=== PATIENT | female | born 1965 | race Caucasian/White ===

== ENCOUNTER 2017-03-01 19:25 | Emergency (ER) | payer MEDICAID ==
[~2017-03-01] VITALS: Ht 162.6 cm; Wt 70.5 kg
[~2017-03-01 19:25] MED LIST: ACET1TAB40 PO; AMO500 PO; IBUP-1542 PO; TYL2 PO
[2017-03-01 19:29] VITALS: Ht 162.6 cm; Wt 70.5 kg
[2017-03-01] MEDS ORDERED: FAMOTIDINE 20 MG INJ IV STA (21:19)
[2017-03-01] MEDS ORDERED: SOD CHLORIDE 0.9% 1,000 ML IV STA (21:19)
--- NOTE | 2017-03-01 21:22 | ERD ---
ER Documentation Chief Complaint Date/Time DATE: 03/01/17 TIME: 21:20 Chief Complaint mid abd pain x 2 days HPI Patient is a 51-year-old female who presents with gradual onset, constant, dull , moderate epigastric pain for 2 days. She reports that yesterday in the afternoon she started vomiting for several episodes. It was nonbloody. Her abdominal pain started after her vomiting. She later developed diarrhea, which has persisted today. The diarrhea is yellow. Her vomiting has resolved. She denies fever, dysuria. She denies recent travel or eating undercooked foods. ROS All systems reviewed and are negative except as per history of present illness. Medications Home Meds Active Scripts Famotidine* (Famotidine*) 20 Mg Tablet, 20 MG PO BID for 7 Days, #14 TAB Prov:SRAVANI BARBOZA MD 03/01/17 Dicyclomine Hcl* (Bentyl*) 10 Mg Capsule, 10 MG PO QID Y for PAIN, #20 CAP Prov:SRAVANI BARBOZA MD 03/01/17 Discontinued Reported Medications [None] No Conflict Check 08/04/10 Discontinued Scripts Amoxicillin* (Amoxicillin*) 500 Mg Cap, 500 MG PO TID, #30 CAP Prov:MASSIMO GARCES MD 01/24/16 Acetaminophen-Codeine* (Acetaminophen-Cod #3*) 300-30 Mg Tab, 1 TAB PO Q4H Y for PAIN, #10 TAB Prov:MASSIMO GARCES MD 01/24/16 Acetaminophen-Codeine* (Acetaminophen-Cod #2*) 300-15 Mg Tab, 2 TAB PO Q4H Y for PAIN, #10 TAB Prov:TAMIKO MERA PA-C 07/20/15 Ibuprofen* (Motrin*) 600 Mg Tab, 600 MG PO Q6H Y for PAIN AND OR ELEVATED TEMP, #30 Prov:TAMIKO MERA PA-C 07/20/15 Allergies Allergies: Coded Allergies: No Known Allergy (Verified , 03/01/17) PMhx/Soc Past medical history: None Past surgical history: Social history: Denies tobacco, alcohol or illicit drugs. History of Surgery: No Anesthesia Reaction: No Hx Neurological Disorder: No Hx Respiratory Disorders: No Hx Cardiac Disorders: No Hx Psychiatric Problems: No Hx Miscellaneous Medical Probl: No Hx Alcohol Use: No Hx Substance Use: No Hx Tobacco Use: No Smoking Status: Never smoker FmHx Family History: No coronary disease, No diabetes Physical Exam Vitals Vital Signs Date Time Temp Pulse Resp B/P Pulse Ox O2 Delivery O2 Flow Rate FiO2 03/01/17 20:51 57 16 137/75 99 Room Air 03/01/17 19:29 98.4 59 20 115/57 100 Physical Exam Const: Alert, no acute distress Head: Atraumatic Eyes: Normal Conjunctiva, no pallor, no icterus ENT: Normal External Ears, Nose and Mouth. Neck: Full range of motion..~ No meningismus. Resp: Clear to auscultation bilaterally, no wheezes, no rales Cardio: Regular rate and rhythm, no murmurs Abd: Soft, nondistended. Mild epigastric tenderness, no guarding, no rebound Skin: No petechiae or rashes Back: No midline or flank tenderness Ext: No cyanosis, or edema Neur: Awake and alert, cranial nerves II through XII intact bilaterally, strength and sensation full in 4 extremities. Psych: Normal Mood and Affect Result Diagram: 03/01/17201903/01/172019 Results 24 hrs Laboratory Tests Test 03/01/17 20:20 White Blood Count 5.810^3/ul Red Blood Count 4.8810^6/ul Hemoglobin 14.9g/dl Hematocrit 45.6% Mean Corpuscular Volume 93.4fl Mean Corpuscular Hemoglobin 30.5pg Mean Corpuscular Hemoglobin Concent 32.7g/dl Red Cell Distribution Width 12.8% Platelet Count 11350^3/UL Mean Platelet Volume 12.3fl Neutrophils % 60.8% Lymphocytes % 30.2% Monocytes % 6.2% Eosinophils % 2.4% Basophils % 0.2% Nucleated Red Blood Cells % 0.0/100WBC Neutrophils # 3.510^3/ul Lymphocytes # 1.710^3/ul Monocytes # 0.410^3/ul Eosinophils # 0.110^3/ul Basophils # 0.010^3/ul Nucleated Red Blood Cells # 0.010^3/ul Sodium Level 145mmol/L Potassium Level 4.0mmol/L Chloride Level 102mmol/L Carbon Dioxide Level 27mmol/L Anion Gap 20 Blood Urea Nitrogen 7mg/dl Creatinine 0.68mg/dl Glucose Level 99mg/dl Calcium Level 9.9mg/dl Total Bilirubin 0.6mg/dl Direct Bilirubin 0.00mg/dl Indirect Bilirubin 0.6mg/dl Aspartate Amino Transf (AST/SGOT) 43IU/L Alanine Aminotransferase (ALT/SGPT) 58IU/L Alkaline Phosphatase 106IU/L Total Protein 8.8g/dl Albumin 4.6g/dl Globulin 4.20g/dl Albumin/Globulin Ratio 1.09 Lipase 40U/L Serum HCG, Qualitative NEGATIVE Current Medications Medications (Trade) Dose Ordered Sig/Magda Route PRN Reason Start Time Stop Time Status Last Admin Dose Admin Sodium Chloride (NS) 1,000 ml @ 1,000 mls/hr Q1H STAT IV 03/01/17 21:19 03/01/17 22:18 DC 03/01/17 21:27 Famotidine (Pepcid Iv) 20 mg ONCE STAT IV 03/01/17 21:19 03/01/17 21:21 DC 03/01/17 21:27 Dicyclomine HCl (Bentyl) 10 mg ONCE ONCE PO 03/01/17 21:30 03/01/17 21:31 DC 03/01/17 21:27 Procedures/MDM MDM: Patient is a 51-year-old female who presents with vomiting followed by abdominal pain and diarrhea. The abdominal pain is located in the epigastrium. The patient has no fever, no back pain. She has mild tenderness on exam, but her exam is relatively benign. Her labs are unremarkable. Is no evidence of electrolyte abnormality or dehydration. Currently, the patient has only diarrhea no vomiting. She states that her pain is somewhat improved with Pepcid and Bentyl. I suspect functional pain in the setting of gastroenteritis based on her history and exam. There are no features that are concerning for cholecystitis, pancreatitis, appendicitis, diverticulitis, or bowel obstruction. I will discharge the patient with prescriptions for Pepcid and Bentyl, and have advised patient to return to the ER for fever, worsening pain, migratory pain, or recurrence of vomiting. Departure Diagnosis: Primary Impression: Gastroenteritis Additional Impression: Abdominal pain Abdominal location: epigastric Qualified Code: R10.13 - Epigastric pain Condition: SRAVANI Jamison MD Mar 01, 2017 21:22
[2017-03-01 21:28] LABS: ADD SCAN DIFF NO
[2017-03-01 21:30] LABS: BASOPHILS % 0.2 % (0.0-2.0); EOSINOPHILS # 0.1 10^3/ul (0.0-0.5); EOSINOPHILS % 2.4 % (0.0-7.0); HEMATOCRIT 45.6 % (37.0-47.0); HEMOGLOBIN 14.9 g/dl (12.0-16.0); LYMPHOCYTES # 1.7 10^3/ul (0.8-2.9); LYMPHOCYTES % 30.2 % (15.0-51.0); MEAN CORPUSCULAR HEMOGLOBIN 30.5 pg (29.0-33.0); MEAN CORPUSCULAR HGB CONC 32.7 g/dl (32.0-37.0); MEAN CORPUSCULAR VOLUME 93.4 fl (82.0-101.0); MEAN PLATELET VOLUME 12.3 fl (7.4-10.4); MONOCYTE # 0.4 10^3/ul (0.3-0.9); MONOCYTES % 6.2 % (0.0-11.0); NEUTROPHIL # 3.5 10^3/ul (1.6-7.5); NEUTROPHILS % 60.8 % (39.0-77.0); PLATELET COUNT 195 10^3/UL (140-415); RED BLOOD COUNT 4.88 10^6/ul (4.20-5.40); RED CELL DISTRIBUTION WIDTH 12.8 % (11.5-14.5); WHITE BLOOD COUNT 5.8 10^3/ul (4.8-10.8)
[2017-03-01] MEDS ORDERED: DICYCLOMINE 10 MG CAP PO ONE (21:30)
[2017-03-01 21:36] LABS: ALBUMIN 4.6 g/dl (3.3-4.9); ALBUMIN/GLOBULIN RATIO 1.09; BILIRUBIN,INDIRECT 0.6 mg/dl (0-1.1); BILIRUBIN,TOTAL 0.6 mg/dl (0.2-1.3); CALCIUM 9.9 mg/dl (8.4-10.2); CREATININE 0.68 mg/dl (0.44-1.00); TOTAL PROTEIN 8.8 g/dl (6.1-8.1)
[2017-03-01] MEDS ORDERED: FAMO20TA18 PO (22:47)
[2017-03-01] MEDS ORDERED: DICY10CA60 PO (22:47)
[2017-03-01 23:35] VITALS: BP 107/80; PULSE 64; RESP 16; TEMP 98.1
== END 2017-03-01 23:44 | disposition home or self-care (01) ==
LOC: E/R 19:25
DX: K52.9 Noninfective gastroenteritis and colitis, unspecified (principal)
CPT/HCPCS: 36415; 80053; 83690; 84703; 85025; 96374; J7030; Z7502; Z7610

== ENCOUNTER 2018-01-31 23:11 | Emergency (ER) | END 2018-02-01 03:31 | disposition home or self-care (01) ==

== ENCOUNTER 2018-12-27 22:09 | Inpatient (IN) | payer MEDICAID ==
[~2018-12-27] VITALS: Ht 154.9 cm; Wt 63.6 kg
[~2018-12-27 22:09] MED LIST changes: -ACET1TAB40 PO; +ALBU8.5H8 INH; -AMO500 PO; +AZIT250T PO; +CETI10CA PO; +DICY10CA40 PO; +FAMO20TA18 PO; +GUAI473L22 PO; -TYL2 PO
[2018-12-27 22:17] VITALS: Ht 154.9 cm; Wt 63.6 kg
--- NOTE | 2018-12-27 22:23 | ERD ---
ER Documentation Chief Complaint Chief Complaint syncope, not responding when called HPI This is a 53-year-old female presents for evaluation of near syncope and chest pain. Patient was distraught, as her nephew had presented into the ED as a cardiac arrest, and unfortunately, he is now . Patient states that she has bilateral numbness to her hands and legs, she is tearful and very anxious, she has no prior history of heart disease or diabetes. ROS All systems reviewed and are negative except as per history of present illness. Medications Home Meds Active Scripts Cetirizine Hcl* (Zyrtec*) 10 Mg Capsule, 10 MG PO DAILY, #30 TAB.CHEW Prov:JUAN GOMEZ NP 02/01/18 Ibuprofen* (Motrin*) 600 Mg Tab, 600 MG PO Q6H PRN for PAIN AND OR ELEVATED TEMP, #30 TAB Prov:JUAN GOMEZ NP 02/01/18 Guaifenesin-Codeine Phosphate* (Guaifenesin* AC Cough Syrup) 473 Ml Liquid, 10 ML PO Q4H PRN for COUGH, #120 ML Prov:JUAN GOMEZ NP 02/01/18 Azithromycin* (Zithromax*) 250 Mg Tablet, 250 MG PO .WalkerPACK DIRECTED, #6 TAB TAKE 500 MG (2 TABS) THE FIRST DAY THEN 250 MG (1 TAB) DAYS 2-5 Prov:JUAN GOMEZ NP 02/01/18 Albuterol Sulfate* (Proair HFA*) 8.5 Gm Hfa.aer.ad, 2 PUFF INH Q4, #1 INHALER Prov:JUAN GOMEZ NP 02/01/18 Famotidine* (Famotidine*) 20 Mg Tablet, 20 MG PO BID for 7 Days, #14 TAB Prov:SRAVANI BARBOZA MD 03/01/17 Dicyclomine HCl (Dicyclomine HCl) 10 Mg Capsule, 10 MG PO QID PRN for PAIN, #20 CAP Prov:SRAVANI BARBOZA MD 03/01/17 Allergies Allergies: Coded Allergies: No Known Allergy (Verified , 03/01/17) PMhx/Soc History of Surgery: No Anesthesia Reaction: No Hx Neurological Disorder: No Hx Respiratory Disorders: No Hx Cardiac Disorders: No Hx Psychiatric Problems: No Hx Miscellaneous Medical Probl: No Hx Alcohol Use: No Hx Substance Use: No Hx Tobacco Use: No Physical Exam Vitals Vital Signs Date Temp Pulse Resp B/P (MAP) Pulse Ox O2 O2 Flow FiO2 Time Delivery Rate 12/27/18 99.1 86 22 131/83 100 22:17 (99) Physical Exam Const: Tearful, very anxious appearing Head: Atraumatic Eyes: Normal Conjunctiva ENT: Normal External Ears, Nose and Mouth. Neck: Full range of motion. No meningismus. Resp: Clear to auscultation bilaterally, no wheezes rales or rhonchi Cardio: Regular rate and rhythm, no murmurs Abd: Soft, non tender, non distended. Normal bowel sounds Skin: No petechiae or rashes Back: No midline or flank tenderness Ext: No cyanosis, or edema Neur: Awake and alert Psych: Appropriately distraught Result Diagram: 12/27/18 2227 12/28/18 0017 Results 24 hrs Laboratory Tests Test 12/27/18 22:27 12/27/18 22:28 12/28/18 00:17 White Blood Count 6.4 10^3/ul Red Blood Count 4.50 10^6/ul Hemoglobin 13.7 g/dl Hematocrit 41.5 % Mean Corpuscular Volume 92.2 fl Mean Corpuscular Hemoglobin 30.4 pg Mean Corpuscular 33.0 g/dl Hemoglobin Concent Red Cell Distribution Width 12.7 % Platelet Count 209 10^3/UL Mean Platelet Volume 11.5 fl Immature Granulocytes % 0.200 % Neutrophils % 52.1 % Lymphocytes % 36.4 % Monocytes % 8.8 % Eosinophils % 2.0 % Basophils % 0.5 % Nucleated Red Blood Cells % 0.0 /100WBC Immature Granulocytes # 0.010 10^3/ul Neutrophils # 3.3 10^3/ul Lymphocytes # 2.3 10^3/ul Monocytes # 0.6 10^3/ul Eosinophils # 0.1 10^3/ul Basophils # 0.0 10^3/ul Nucleated Red Blood Cells # 0.0 10^3/ul Sodium Level 140 mmol/L 141 mmol/L Potassium Level 3.9 mmol/L 4.4 mmol/L Chloride Level 107 mmol/L 110 mmol/L Carbon Dioxide Level 25 mmol/L 23 mmol/L Anion Gap 8 8 Blood Urea Nitrogen 21 mg/dl 19 mg/dl Creatinine 0.62 mg/dl 0.54 mg/dl Est Glomerular Filtrat Rate mL/min > 60 mL/min > 60 mL/min Glucose Level 148 mg/dl 144 mg/dl Calcium Level 9.7 mg/dl 9.2 mg/dl Troponin I 0.237 ng/ml 1.480 ng/ml Bedside Glucose 147 mg/dL Prothrombin Time 12.8 Sec Prothrombin Time Ratio 1.0 INR International Normalized Ratio 0.95 Activated Partial Thromboplast 28.6 Sec Time Total Bilirubin 0.4 mg/dl Direct Bilirubin 0.00 mg/dl Indirect Bilirubin 0.4 mg/dl Aspartate Amino Transf (AST/SGOT) 49 IU/L Alanine 32 IU/L Aminotransferase (ALT/SGPT) Alkaline Phosphatase 107 IU/L B-Type Natriuretic Peptide 91 PG/ML Total Protein 7.5 g/dl Albumin 4.2 g/dl Globulin 3.30 g/dl Albumin/Globulin Ratio 1.27 Triglycerides Level 252 mg/dl Cholesterol Level 250 mg/dl LDL Cholesterol, Calculated 154 mg/dl HDL Cholesterol 46 mg/dl Cholesterol/HDL Ratio 5.4 RATIO Lipase 77 U/L Current Medications Medications Dose Sig/Magda Start Time Status Last (Trade) Ordered Route PRN Stop Time Admin Dose Reason Admin Lorazepam 1 mg ONCE ONCE 12/27/18 DC 12/27/18 (Ativan) IV 22:30 22:39 12/27/18 22:31 Sodium 1,000 ml @ Q1H ONCE 12/27/18 DC 12/27/18 Chloride 1,000 mls/hr IV 22:30 22:39 12/27/18 23:29 Aspirin 162 mg ONCE ONCE 12/27/18 DC 12/27/18 (Aspirin) PO 23:30 23:58 12/27/18 23:31 Aspirin 325 mg ONCE ONCE 12/28/18 DC 12/28/18 (Aspirin) PO 00:07 00:07 12/28/18 00:08 Heparin 3,600 unit ONCE ONCE 12/28/18 DC 12/28/18 Sodium IV 00:07 00:25 (Porcine) 12/28/18 00:08 (Heparin (1000 Units/ml)) Heparin 250 ml @ ONCE IV 12/28/18 DC 12/28/18 Sodium 7.5 mls/hr 00:01 00:27 (Porcine) 12/28/18 01:31 Sodium 1,000 ml @ [id number] IV 12/28/18 Chloride 60 mls/hr 01:21 IV Flush 3 ml PER 12/28/18 (NS 3 ml) PROTOCOL IV 01:30 Lorazepam 0.5 mg Q6H PRN 12/28/18 (Ativan) IV .ANXIETY 01:30 Ondansetron 4 mg Q6H PRN 12/28/18 HCl (Zofran IV 01:30 Inj) NAUSEA/VOMITI NG Aspirin 81 mg DAILY PO 12/28/18 (Aspirin) 09:00 1 tab Q5M PRN 12/28/18 Nitroglycerin SL .CHEST 01:30 PAIN (Nitroglyceri n (Sl Tab) 0.4 Mg) 650 mg Q6H PRN 12/28/18 Acetaminophen PO .PAIN 1-3 01:30 (Tylenol OR TEMP Tab) Morphine 2 mg Q4H PRN 12/28/18 Sulfate IV .PAIN 01:30 (morphine) 7-10 Docusate 100 mg Q12H PRN 12/28/18 Sodium PO 01:30 (Colace) .CONSTIPATION Bisacodyl 5 mg DAILY PRN 12/28/18 (Dulcolax) PO 01:30 .CONSTIPATION DC ONCE ONCE 12/28/18 DC Miscellaneous previous XX 01:30 hepa... 12/28/18 01:31 Information (* Miscellaneous Pharmacy Order) Heparin 3,800 unit ONCE ONCE 12/28/18 DC Sodium IV 01:30 (Porcine) 12/28/18 01:30 (Heparin (1000 Units/ml)) Heparin 3,800 unit PER PROTOCOL 12/28/18 Sodium PRN IV 01:30 (Porcine) aPTT<47 (Heparin (1000 Units/ml)) Heparin 250 ml @ PER 12/28/18 Sodium 7.5 mls/hr PROTOCOL IV 01:30 (Porcine) Lisinopril 5 mg ONCE ONCE 12/28/18 DC (Zestril) PO 01:30 12/28/18 01:31 80 mg ONCE ONCE 12/28/18 DC Atorvastatin PO 01:30 Calcium 12/28/18 01:31 (Lipitor) 80 mg HS PO 12/28/18 Atorvastatin 21:00 Calcium (Lipitor) Procedures/MDM This is a 53-year-old female who presents for evaluation of chest pain and near syncope, this was in the setting of a very traumatic event, her nephew, just in the ED, her chest pain had improved by the time she arrived, her labs showed an elevated troponin, her EKG did not show any signs of ischemia, I considered possibly of Takatsubo cardiomyopathy, however another cause of an STEMI cannot be ruled out, that she will require admission. She was given aspirin and started on heparin. Accepting Care Team: Current data and ongoing care discussed. Primary: Neftaly Consulting: none Outstanding Data: none Critical Care Time: 35 minutes Treatments/Evaluations: Close monitoring and treatment of unstable vital signs, cardiorespiratory, and neurologic status, while maintaining tight balance of fluid, respiratory, and cardiac interventions. This time includes discussing the case with the patient and the patient's family. This time does not include all procedures stated elsewhere in this record. This time also includes reviewing o ld records, labs and radiological studies. This time includes examining and re- examining the patient. Additionally, this time also includes arranging care with admitting and consulting physicians. Departure Diagnosis: Primary Impression: Chest pain Chest pain type: unspecified Qualified Codes: R07.9 - Chest pain, unspecified Additional Impression: Non-STEMI (non-ST elevated myocardial infarction) Condition: Stable MARK TREVIZO MD December 27, 2018 22:22
[2018-12-27] MEDS ORDERED: LORAZEPAM 2 MG INJ IV ONE (22:30)
[2018-12-27] MEDS ORDERED: SOD CHLORIDE 0.9% 1,000 ML IV ONE (22:30)
[2018-12-27] MEDS ORDERED: ASPIRIN 81 MG TAB PO ONE (23:30)
[2018-12-28] VITALS (37 sets, daily range): BP systolic 76–109; BP diastolic 48–66; PULSE 52–74; RESP 11–22
[2018-12-28] MEDS ORDERED: HEPARIN 25000 UNITS/250 ML 250 ML IV SCH ×2 (00:01→01:30)
[2018-12-28] MEDS ORDERED: ASPIRIN 325 MG TAB PO ONE (00:07)
[2018-12-28] MEDS ORDERED: HEPARIN 1000 UNITS/ML 10 ML INJ IV ONE ×2 (00:07→01:30)
[2018-12-28] MEDS: SOD CHLORIDE 0.9% 1,000 ML IV SCH (01:21)
--- NOTE | 2018-12-28 01:26 | HP ---
Date/Time of Note Date/Time of Note DATE: 12/28/18 TIME: 01:26 Assessment/Plan VTE Prophylaxis SCD applied (from Nsg): Yes Pharmacological prophylaxis: NA/contraindicated Pharm contraindication: low risk/ambulating Assessment/Plan Hospital Course This is a 53-year-old female being admitted to the telemetry floor for: #1Nstemi: Type I versus type II. Differential also includes takostubo cardiomyopathy initial troponin was 0.2 with a repeat increasing to 1.2. Patient was initiated on heparin drip in the emergency department will continue this at the current time, she was also given high-dose aspirin.. We will start the patient on a low-dose KIRSTIN inhibitor, high-dose statin. We will check hemoglobin A 1C, lipid panel, TSH. We will keep the patient n.p.o. at the current time, gentle IV fluid hydration. We will check an echocardiogram., Aspirin 81 mg daily will consult cardiology . PRN nitro/morphine. defer beta-buzz until seen by cardio. #2 syncope vs. near syncope: secondary to #1 vs emotional stress response/vasogal. Back to baseline now. Monitor on tele for arrhythmias. Cardio consulted. #3 hypertension: Monitor patient's blood pressure, start low dose patient on lisinopril, will need to confirm her home medication #4 hyperlipidemia: Check lipid panel, initiate high-dose statin #5 Grief: Supportive care, PRN Ativan #6 DVT GI prophylaxis: Heparin, no GI prophylaxis indicated Further treatment strategy will be implemented as per the clinical course Result Diagram: 12/27/18 2227 12/28/18 0017 Results 24hrs Laboratory Tests Test 12/27/18 22:27 12/27/18 22:28 12/28/18 00:17 White Blood Count 6.4 Red Blood Count 4.50 Hemoglobin 13.7 Hematocrit 41.5 Mean Corpuscular Volume 92.2 Mean Corpuscular Hemoglobin 30.4 Mean Corpuscular Hemoglobin Concent 33.0 Red Cell Distribution Width 12.7 Platelet Count 209 Mean Platelet Volume 11.5 H Immature Granulocytes % 0.200 Neutrophils % 52.1 Lymphocytes % 36.4 Monocytes % 8.8 Eosinophils % 2.0 Basophils % 0.5 Nucleated Red Blood Cells % 0.0 Immature Granulocytes # 0.010 Neutrophils # 3.3 Lymphocytes # 2.3 Monocytes # 0.6 Eosinophils # 0.1 Basophils # 0.0 Nucleated Red Blood Cells # 0.0 Sodium Level 140 141 Potassium Level 3.9 4.4 Chloride Level 107 110 Carbon Dioxide Level 25 23 Anion Gap 8 8 Blood Urea Nitrogen 21 H 19 Creatinine 0.62 0.54 Est Glomerular Filtrat Rate mL/min > 60 > 60 Glucose Level 148 144 Calcium Level 9.7 9.2 Troponin I 0.237 *H 1.480 *H Bedside Glucose 147 Prothrombin Time 12.8 Prothrombin Time Ratio 1.0 INR International Normalized Ratio 0.95 Activated Partial Thromboplast Time 28.6 Total Bilirubin 0.4 Direct Bilirubin 0.00 Indirect Bilirubin 0.4 Aspartate Amino Transf (AST/SGOT) 49 H Alanine Aminotransferase (ALT/SGPT) 32 Alkaline Phosphatase 107 B-Type Natriuretic Peptide 91 Total Protein 7.5 Albumin 4.2 Globulin 3.30 H Albumin/Globulin Ratio 1.27 Triglycerides Level 252 H Cholesterol Level 250 H LDL Cholesterol, Calculated 154 HDL Cholesterol 46 Cholesterol/HDL Ratio 5.4 Lipase 77 HPI/ROS Admit Date/Time Admit Date/Time Hx of Present Illness Chief complaint: Chest pain followed by syncope This is a 53-year-old female who presented to the emergency department for evaluation of chest pain and syncope. Patient unfortunately found out the news of her relatives who was only 16 years old and suffered a cardiac arrest at [facility]. After finding out the news patient became overcome with emotion and reported chest pain followed by fainting. Patient was caught by relatives and did not hit the ground. Patient was approximately nonresponsive for a period of a few minutes. She was brought in via wheelchair to the emergency department. It took her some time to awaken. Patient reports that when she awoke she continued to have chest pain. She also reported having numbness in her bilateral hands and legs and she was tearful and very stressed in the emergency department. She was accompanied by her daughter who did report that in the past she had been complaining of chest pain over the last few months. Allergies: NKDA Medications: See MATHIEU VACA Const: As per HPI Eyes : No pain discharge or redness or change in visual acuity ENT: No pain, sore throat, congestion, congestion, dysphagia or discharge Respiratory: No shortness of breath, cough, sputum, wheezing, or pleuritic pain Cardiovascular: As per HPI GI : no change in appetite, abdominal pain, nausea, vomiting, diarrhea, constipation, or change in the color his stool Genitourinary: No dysuria, hematuria, flank pain , discharge or CVA tenderness Musculoskeletal: No joint pain, back pain, neck pain, restricted range of motion in neck or joints Skin: No rash, bruising or hives Neuro: No headache, dizziness, syncope, seizure, focal weakness Endocrine: No polyuria, polydipsia, temperature intolerance Psych: As per HPI PMH/Family/Social Past Medical History Hypertension, hyperlipidemia Medications Current Medications Heparin Sodium (Porcine) 250 ml @ 7.5 mls/hr ONCE IV Last administered on 12/28/18at 00:27; Admin Dose 7.5 MLS/HR; Start 12/28/18 at 00:01; Stop 12/29/18 at 00:00 Coded Allergies: No Known Allergy (Unverified , 12/28/18) Past Surgical History x1 Family History Significant Family History: no pertinent family hx Social History Alcohol Use: none Smoking Status: Never smoker Drug Use: none Exam/Review of Systems Vital Signs Vitals Vital Signs Date Temp Pulse Resp B/P (MAP) Pulse Ox O2 O2 Flow FiO2 Time Delivery Rate 12/27/18 99.1 86 22 131/83 100 22:17 (99) Exam Exam General: Patient is currently lying in bed she does appear sad, but in no acute distress HEENT: Atraumatic, normocephalic. The pupils are equal, round and reactive. Extraocular motor are intact Neck: Supple with full range of motion. No rigidity or meningismus Chest: Tender to palpation across anterior chest wall Lungs: Clear to auscultation bilaterally no crackles rales or wheezing Heart: Normal S1-S2, Regular rhythm and rate. No overt murmurs appreciated on auscultation Abdomen: Soft , nontender, nondistended , bowel sounds are present. No guarding no rebound tenderness , No masses or organomegaly. No costovertebral temporal angle mass Extremities: Normal to inspection, no edema no cyanosis Neurologic: Normal mental status, speech normal, cranial nerves II through XII are intact, motor and sensory are intact, Psych: Patient does appear to be sad, slightly anxious Additional Comments EKG: Normal sinus rhythm, no signs of acute ischemia PROCEDURE: CHEST - 1 VIEW CLINICAL INDICATION: 53-year-old female with chest pain. TECHNIQUE: A single frontal AP portable view of the chest was performed. The images were reviewed on a PACS workstation. COMPARISON: None. FINDINGS: The cardiomediastinal silhouette is prominent but within normal limits. There is no evidence for an infiltrate. There is no evidence for congestive heart failure. There is no evidence for pneumothorax. The osseous structures are intact. IMPRESSION: No evidence for active cardiopulmonary disease. .Ace Mcdermott MD, MD Date Time Electronically viewed and signed by .Ace Mcdermott MD, MD on 12/28/2018 03:39 .M/ CC: MARK TREVIZO MD [id number] JAYANT CALDWELL December 28, 2018 01:26
[2018-12-28] MEDS ORDERED: ATORVASTATIN 80 MG TAB PO ONE (01:30)
[2018-12-28] MEDS ORDERED: NACL 0.9% 3 ML SYG IV SCH (01:30)
[2018-12-28] MEDS ORDERED: LISINOPRIL 5 MG TAB PO ONE (01:30)
[2018-12-28] MEDS ORDERED: LORAZEPAM 2 MG INJ IV PRN (01:30)
[2018-12-28] MEDS ORDERED: DOCUSATE SODIUM 100 MG CAP PO PRN (01:30)
[2018-12-28] MEDS ORDERED: HEPARIN 1000 UNITS/ML 10 ML INJ IV PRN (01:30)
[2018-12-28] MEDS ORDERED: BISACODYL (EC) 5 MG TAB PO PRN (01:30)
[2018-12-28] MEDS ORDERED: NITROGLYCERIN (SL) 0.4 MG TAB SL PRN (01:30)
[2018-12-28] MEDS: ACETAMINOPHEN 325 MG TAB PO PRN (04:38)
--- NOTE | 2018-12-28 08:53 | RADRPT ---
Echocardiogram Report Patient Name: MIKAELA MESAPatient ID: [id number] : 1965 (53y 6m)Study Date: 12/28/2018 7:19:28 AM Gender: FAccession #: [id number] Tech: Marianna Morrissey RDCS Location: 519 Ref.Physician: JAYANT CALDWELL Height(Cm): BSA: Weight(Kg): Quality: AdequateOrder Physician: JAYANT CALDWELL Account #: Procedures: Echocardiographic Report: Transthoracic echocardiogram with complete 2D, M-Mode, and doppler examination. Indications: NSTEMI. Measurements: 2D/M Mode Doppler Measurement Value Normal Range Measurement Value Normal Range LVIDd 2D 4.6 [ 3.8 - 5.2 ] cm AV Peak Jose Juan 1.2 [ 100.0 - 170.0 ] cm/sec LVIDs 2D 3.1 [ 2.2 - 3.5 ] cm AV Peak PG 6.0 [ 2.0 - 9.0 ] mmHg LVPWd 2D 0.9 [ 0.6 - 0.9 ] cm LVOT Peak Jose Juan 0.9 [ 70.0 - 110.0 ] cm/sec IVSd 2D 0.9 [ 0.6 - 0.9 ] cm LVOT Peak PG 3.0 [ 2.0 - 6.0 ] mmHg AoR Diam 2D 2.3 [ 2.3 - 3.1 ] cm MV E Peak Jose Juan 0.9 [ 60.0 - 130.0 ] cm/sec EDV 2D 94.9 [ 46.0 - 106.0 ] ml MV A Peak Jose Juan 0.6 [ 100.0 - 120.0 ] cm/sec ESV 2D 37.0 [ 14.0 - 42.0 ] ml MV E/A 1.5 [ 0.8 - 1.5 ] ratio EF 2D 61.0 [ 54.0 - 74.0 ] percent MV Decel Time 183 [ 104 - 258 ] msec LA Dimen 2D 3.2 [ 2.7 - 3.8 ] cm Lat E` Jose Juan 0.1 [ 10.0 - 15.0 ] cm/sec Lateral E/E` 13.0 [ 1.0 - 2.0 ] ratio MV E/A 1.5 [ 0.8 - 1.5 ] ratio TR Peak Jose Juan 2.6 [ 100.0 - 280.0 ] cm/sec TR Peak PG 27.0 mmHg RVSP 30.0 [ 10.0 - 36.0 ] mmHg RA Pressure 3.0 mmHg Findings: Left Ventricle: Normal left ventricular cavity size. Normal left ventricular wall thickness. Mild left ventricular systolic dysfunction. Ejection fraction is visually estimated at 40-45 %. Akinesis/dyskinesis of the mid anterior and anterolateral reyes. These segments of the LV are hypokinetic mid anterior segment, anterolateral mid segment and anteroseptum mid segment. Right Ventricle: Normal right ventricular size. Normal right ventricular systolic function. Left Atrium: The left atrium is normal in size. Right Atrium: The right atrium is normal in size. Mitral Valve: Normal appearance of the mitral valve. Normal appearance and function of the mitral valve with trace physiologic regurgitation. Aortic Valve: Normal appearance of the aortic valve. No significant aortic stenosis or insufficiency. Tricuspid Valve: Normal appearance of the tricuspid valve. Estimated peak PA systolic pressure 30 mmHg. There is trace tricuspid regurgitation. Pulmonic Valve: Normal pulmonic valve appearance. Pericardium: Normal pericardium with no significant pericardial effusion. Aorta: Normal aortic root. IVC: Normal size and normal respiratory collapse consistent with normal right atrial pressure. Conclusions: Normal left ventricular cavity size. Normal left ventricular wall thickness. Mild left ventricular systolic dysfunction. Ejection fraction is visually estimated at 40-45 %. Akinesis/dyskinesis of the mid anterior and anterolateral reyes. These segments of the LV are hypokinetic mid anterior segment, anterolateral mid segment and anteroseptum mid segment. No significant valvular stenosis or regurgitation seen. Estimated peak PA systolic pressure 30 mmHg. Normal size and normal respiratory collapse consistent with normal right atrial pressure. Electronically Signed By: Kun Agudelo 2018-12-28 08:52:26 PDT
[2018-12-28] MEDS: ASPIRIN 81 MG TAB PO SCH (09:13)
--- NOTE | 2018-12-28 09:21 | CONS ---
Assessment/Plan Assessment/Plan Hospital Course (Demo Recall) NSTEMI: EKG normal, trops so far 2.6. Based on surrounding circumstances, Takotsubo is still highest on differential. SCAD also possible. Echo does not show the classic apical aneurysm but instead a mid anterior/anterolateral one so could be true CAD or Takotsubo variant. Regardless, this is a diagnosis that is made after CAD has been ruled out. She is agreeable to cardiac cath. Syncope: near syncope or full syncope. Still likely from the overwhelming emotional stress triggering vasovagal response but cannot rule out arrhythmia in the setting of above Cardiomyopathy: EF 40-45% with mid anterior/anterolateral akinesis. Possibly Takotsubo if CAD ruled out HL: LDL 150 -NPO -cardiac cath today at 2pm -continue heparin drip -ASA, lipitor -BP will not tolerate BB for now but will need to start metoprolol succ or coreg once it improves Consultation Date/Type/Reason Admit Date/Time Date of Consultation: December 28, 2018 Type of Consult Cardiology Reason for Consultation NSTEMI Requesting Provider: JAYANT CALDWELL Date/Time of Note DATE: 12/28/18 TIME: 09:09 Hx of Present Illness 53 yo F with no prior medical history who had syncope and chest pain while in [facility] ER after hearing about the passing of her 16 year old nephew in our ER. An lion tamer was used for Filipino. She notes that she started to have chest pain and dyspnea and then almost passed out. She does not think she fully lost consciousness and her family caught her. Her EKG was unremarkable and her trops have been up to 2.6 this am. No further chest pain or SOB. She notes that she sometimes has chest pain when she is stressed but never with exertion. per hpi Past Medical History per HPI Home Meds Active Scripts Ibuprofen* (Motrin*) 600 Mg Tab, 600 MG PO Q6H PRN for PAIN AND OR ELEVATED TEMP, #30 TAB Prov:JUAN GOMEZ NP 02/01/18 Discontinued Scripts Cetirizine Hcl* (Zyrtec*) 10 Mg Capsule, 10 MG PO DAILY, #30 TAB.CHEW Prov:JUAN GOMEZ NP 02/01/18 Guaifenesin-Codeine Phosphate* (Guaifenesin* AC Cough Syrup) 473 Ml Liquid, 10 ML PO Q4H PRN for COUGH, #120 ML Prov:JUAN GOMEZ NP 02/01/18 Azithromycin* (Zithromax*) 250 Mg Tablet, 250 MG PO .ZPACK DIRECTED, #6 TAB TAKE 500 MG (2 TABS) THE FIRST DAY THEN 250 MG (1 TAB) DAYS 2-5 Prov:JUAN GOMEZ NP 02/01/18 Albuterol Sulfate* (Proair HFA*) 8.5 Gm Hfa.aer.ad, 2 PUFF INH Q4, #1 INHALER Prov:JUAN GOMEZ NP 02/01/18 Famotidine* (Famotidine*) 20 Mg Tablet, 20 MG PO BID for 7 Days, #14 TAB Prov:SRAVANI BARBOZA MD 03/01/17 Dicyclomine HCl (Dicyclomine HCl) 10 Mg Capsule, 10 MG PO QID PRN for PAIN, #20 CAP Prov:SRAVANI BARBOZA MD 03/01/17 Medications Current Medications Sodium Chloride 1,000 ml @ 60 mls/hr [id number] IV Last administered on 12/28/18at 01:21; Admin Dose 60 MLS/HR; Start 12/28/18 at 01:21 IV Flush (NS 3 ml) 3 ml PER PROTOCOL IV ; Start 12/28/18 at 01:30 Lorazepam (Ativan) 0.5 mg Q6H PRN IV .ANXIETY; Start 12/28/18 at 01:30 Ondansetron HCl (Zofran Inj) 4 mg Q6H PRN IV NAUSEA/VOMITING; Start 12/28/18 at 01:30 Aspirin (Aspirin) 81 mg DAILY PO ; Start 12/28/18 at 09:00 Nitroglycerin (Nitroglycerin (Sl Tab) 0.4 Mg) 1 tab Q5M PRN SL .CHEST PAIN; St art 12/28/18 at 01:30 Acetaminophen (Tylenol Tab) 650 mg Q6H PRN PO .PAIN 1-3 OR TEMP Last administe red on 12/28/18at 04:38; Admin Dose 650 MG; Start 12/28/18 at 01:30 Morphine Sulfate (morphine) 2 mg Q4H PRN IV .PAIN 7-10; Start 12/28/18 at 01:30 Docusate Sodium (Colace) 100 mg Q12H PRN PO .CONSTIPATION; Start 12/28/18 at 01:30 Bisacodyl (Dulcolax) 5 mg DAILY PRN PO .CONSTIPATION; Start 12/28/18 at 01:30 Heparin Sodium (Porcine) (Heparin (1000 Units/ml)) 3,800 unit PER PROTOCOL PRN IV aPTT<47; Start 12/28/18 at 01:30 Heparin Sodium (Porcine) 250 ml @ 7.5 mls/hr PER PROTOCOL IV ; Start 12/28/18 at 01:30 Atorvastatin Calcium (Lipitor) 80 mg HS PO ; Start 12/28/18 at 21:00 Allergies: Coded Allergies: No Known Allergy (Unverified , 12/28/18) Social History Alcohol Use: none Smoking Status: Never smoker Drug Use: none Exam/Review of Systems Vital Signs Vitals Vital Signs Date Temp Pulse Resp B/P (MAP) Pulse Ox O2 O2 Flow FiO2 Time Delivery Rate 12/28/18 58 08:11 12/28/18 98.1 19 94/54 (67) 97 07:44 12/28/18 Room Air 04:20 Exam Constitutional: alert, oriented Psych: no complaints, nl mood/affect Head: normocephalic, atraumatic Neck: supple; No jvd Respiratory: clear to auscultation; No crackles/rales Cardiovascular: regular rate and rhythm; No edema, No systolic murmur Gastrointestinal: soft, non-tender Neurological: nl mental status, nl speech Additional Comments EKG: sinus, no ST changes Labs Result Diagram: 12/28/18 0634 12/28/18 0634 Results 24hrs Laboratory Tests Test 12/27/18 22:27 12/27/18 22:28 12/28/18 00:10 12/28/18 00:17 White Blood Count 6.4 7.8 # Red Blood Count 4.50 4.66 Hemoglobin 13.7 14.2 Hematocrit 41.5 43.9 Mean Corpuscular 92.2 94.2 Volume Mean Corpuscular 30.4 30.5 Hemoglobin Mean Corpuscular 33.0 32.3 Hemoglobin Concent Red Cell 12.7 12.7 Distribution Width Platelet Count 209 203 Mean Platelet Volume 11.5 H 12.6 H Immature 0.200 0.300 Granulocytes % Neutrophils % 52.1 71.8 Lymphocytes % 36.4 21.2 Monocytes % 8.8 5.4 Eosinophils % 2.0 1.0 Basophils % 0.5 0.3 Nucleated Red Blood 0.0 0.0 Cells % Immature 0.010 0.020 Granulocytes # Neutrophils # 3.3 5.6 Lymphocytes # 2.3 1.7 Monocytes # 0.6 0.4 Eosinophils # 0.1 0.1 Basophils # 0.0 0.0 Nucleated Red Blood 0.0 0.0 Cells # Sodium Level 140 141 Potassium Level 3.9 4.4 Chloride Level 107 110 Carbon Dioxide Level 25 23 Anion Gap 8 8 Blood Urea Nitrogen 21 H 19 Creatinine 0.62 0.54 Est Glomerular > 60 > 60 Filtrat Rate mL/min Glucose Level 148 144 Calcium Level 9.7 9.2 Troponin I 0.237 *H 1.480 *H Bedside Glucose 147 Prothrombin Time 12.8 Prothrombin Time 1.0 Ratio INR International 0.95 Normalized Ratio Activated 28.6 Partial Thromboplast Time Total Bilirubin 0.4 Direct Bilirubin 0.00 Indirect Bilirubin 0.4 Aspartate Amino 49 H Transf (AST/SGOT) Alanine 32 Aminotransferase (AL T/SGPT) Alkaline Phosphatase 107 B-Type Natriuretic 91 Peptide Total Protein 7.5 Albumin 4.2 Globulin 3.30 H Albumin/Globulin 1.27 Ratio Triglycerides Level 252 H Cholesterol Level 250 H LDL Cholesterol, 154 Calculated HDL Cholesterol 46 Cholesterol/HDL 5.4 Ratio Lipase 77 Test 12/28/18 06:34 White Blood Count 7.3 Red Blood Count 4.24 Hemoglobin 12.8 Hematocrit 39.7 Mean Corpuscular 93.6 Volume Mean Corpuscular 30.2 Hemoglobin Mean Corpuscular 32.2 Hemoglobin Concent Red Cell 12.9 Distribution Width Platelet Count 178 Mean Platelet Volume 12.1 H Immature 0.100 Granulocytes % Neutrophils % 61.7 Lymphocytes % 29.2 Monocytes % 7.7 Eosinophils % 1.0 Basophils % 0.3 Nucleated Red Blood 0.0 Cells % Immature 0.010 Granulocytes # Neutrophils # 4.5 Lymphocytes # 2.1 Monocytes # 0.6 Eosinophils # 0.1 Basophils # 0.0 Nucleated Red Blood 0.0 Cells # Activated 49.5 H Partial Thromboplast Time Sodium Level 142 Potassium Level 4.2 Chloride Level 112 H Carbon Dioxide Level 24 Anion Gap 6 Blood Urea Nitrogen 12 Creatinine 0.48 Est Glomerular > 60 Filtrat Rate mL/min Glucose Level 98 # Hemoglobin A1c 5.5 Calcium Level 9.2 Magnesium Level 2.2 Total Bilirubin 0.7 Direct Bilirubin 0.00 Indirect Bilirubin 0.7 Aspartate Amino 95 H Transf (AST/SGOT) Alanine 63 Aminotransferase (AL T/SGPT) Alkaline Phosphatase 109 Creatine Kinase 121 Creatine Kinase 7.3 Index Creatinine Kinase MB 8.85 H (Mass) Troponin I 2.630 *H Total Protein 6.8 Albumin 3.7 Globulin 3.10 Albumin/Globulin 1.19 Ratio Triglycerides Level 172 H Cholesterol Level 220 H LDL Cholesterol, 137 Calculated HDL Cholesterol 49 Cholesterol/HDL 4.4 Ratio Thyroid Stimulating Pending Hormone (TSH) Medications Medications Current Medications Sodium Chloride 1,000 ml @ 60 mls/hr [id number] IV Last administered on 12/28/18at 01:21; Admin Dose 60 MLS/HR; Start 12/28/18 at 01:21 IV Flush (NS 3 ml) 3 ml PER PROTOCOL IV ; Start 12/28/18 at 01:30 Lorazepam (Ativan) 0.5 mg Q6H PRN IV .ANXIETY; Start 12/28/18 at 01:30 Ondansetron HCl (Zofran Inj) 4 mg Q6H PRN IV NAUSEA/VOMITING; Start 12/28/18 at 01:30 Aspirin (Aspirin) 81 mg DAILY PO ; Start 12/28/18 at 09:00 Nitroglycerin (Nitroglycerin (Sl Tab) 0.4 Mg) 1 tab Q5M PRN SL .CHEST PAIN; Start 12/28/18 at 01:30 Acetaminophen (Tylenol Tab) 650 mg Q6H PRN PO .PAIN 1-3 OR TEMP Last administered on 12/28/18at 04:38; Admin Dose 650 MG; Start 12/28/18 at 01:30 Morphine Sulfate (morphine) 2 mg Q4H PRN IV .PAIN 7-10; Start 12/28/18 at 01:30 Docusate Sodium (Colace) 100 mg Q12H PRN PO .CONSTIPATION; Start 12/28/18 at 01:30 Bisacodyl (Dulcolax) 5 mg DAILY PRN PO .CONSTIPATION; Start 12/28/18 at 01:30 Heparin Sodium (Porcine) (Heparin (1000 Units/ml)) 3,800 unit PER PROTOCOL PRN IV aPTT<47; Start 12/28/18 at 01:30 Heparin Sodium (Porcine) 250 ml @ 7.5 mls/hr PER PROTOCOL IV ; Start 12/28/18 at 01:30 Atorvastatin Calcium (Lipitor) 80 mg HS PO ; Start 12/28/18 at 21:00 MAGUI ACOSTA December 28, 2018 09:20
--- NOTE | 2018-12-28 10:22 | QN ---
Documentation Comment 53 yo F w/no pmh admitted with chest pain/syncope after hearing sudden une xpected of her 16-year-old nephew.. found to have elevated troponin. Cardiology following and plan is [facility] today. cont. aspirin/high intensity statin. Echo with cardiomyopathy with ejection fraction 40 to 45%. Continue KIRSTIN inhibitors and consider statin beta-blockers if tolerated by blood pressure. Patient was seen in collaboration with Dr. Ahuja. IRA REESE NP December 28, 2018 10:22
[2018-12-28] MEDS ORDERED: HEPARIN 1000 UNITS/ML 10 ML INJ ONE (13:48)
[2018-12-28] MEDS ORDERED: MIDAZOLAM 1 MG/ML 2 ML INJ ONE (13:48)
[2018-12-28] MEDS ORDERED: IODIXANOL LOCM 100 ML BTL ONE (13:48)
[2018-12-28] MEDS ORDERED: LIDOCAINE 1% (MDV) 20 ML INJ ONE (13:48)
[2018-12-28] MEDS ORDERED: VERAPAMIL 5 MG INJ ONE (13:49)
[2018-12-28] MEDS ORDERED: FENTAnyl 50 MCG/ML VIAL ONE (13:49)
[2018-12-28] MEDS ORDERED: NITROGLYCERIN (IC) 100 MCG/ML INJ ONE (13:49)
--- NOTE | 2018-12-28 14:24 | RADRPT ---
Vent Rate: 79 bpm RR Interval: 0 msec ID Interval: 162 msec QRS Duration: 80 msec QT Interval: 382 msec QTC Interval: 438 msec P-R-T [place]: 75 - 65 - 36 degrees Normal sinus rhythm Normal ECG Electronically Signed By: [facility]
--- NOTE | 2018-12-28 15:16 | OPR ---
Date/Time of Note Date/Time of Note DATE: 12/28/18 TIME: 15:09 Operative Report Procedure Date: December 28, 2018 Preoperative Diagnosis NSTEMI Postoperative Diagnosis Takotsubo cardiomyopathy Operation/Procedure Performed see details Surgeon see signature line Global Account Director none Anesthesia Type: moderate sedation Estimated Blood Loss: minimal Transfusion none Specimen none Grafts/Implants none Complications none Procedure Description Procedure Date:12/28/18 Communications Project Lead/surgeon:Kun Agudelo MD. Procedures Performed: 1)Left heart catheterization with selective left and right coronary angiography. 2)Left ventricle angiography Pre-operative Diagnosis:NSTEMI Post-operative Diagnosis: Takotsubo cardiomyopathy Indications: 53 yo F with no past medical history who had chest pain and near syncope. She was found to have an NSTEMI with trop 2.6. High suspicion for Takotsubo but cath indicated for CAD rule out Description of Procedure: After informed consent, the patient was brought to the cardiac catheterization lab. The procedure site was prepped and draped in usual manner. The patient was premedicated with versed 1.5 mg and fentanyl 25 mcg. 2 mL lidocaine was injected into the right wrist. Under ultrasound guidance and using the posterior wall technique, the 6/5 mohawk sheath was inserted into the right radial artery. Next using the JR4, selective angiography of the right coronary artery was obtained. Due to vessel spasm, the remainder of the case had to be converted to right femoral. A 5 mohawk sheath was inserted vis [place]. The JL 3.5 catheter was used for left coronary angiography. The pigtail was then advanced into the ventricle and hemodynamics obtained. Left ventricle angiography was obtained. Next all equipment was removed and hemostasis was obtained by TR band in the right radial and manual compression right femoral. Findings: Anatomy/Hemodynamics: Left main:normal LAD:normal, tapers to a small vessel at the apex Diagonal:normal Circumflex:normal Obtuse marginal:normal RCA:normal PDA:normal PLV:normal LV angiography: EF 35-40%. hyperdynamic base and apex with dyskinetic mid anterior and inferior reyes LV-Ao: no gradient LVEDP: 30 mmHg Contrast used:70 mL Fluoroscopy time: 3.2 min Estimated blood loss<10 mL. Specimen: none Grafts/implants: none Complications: none Assessment: NSTEMI due to Takotsubo/stress cardiomyopathy Takotsubo cardiomyopathy: Variant with mid wall dyskinesis and normal apical motion. EF 35-40% by cath, 40-45% by echo. Should improve within 2-3 months Plan: -medical management including coreg and lisinopril as tolerated KUN AGUDELO December 28, 2018 15:16
[2018-12-28] MEDS: morphine 2 MG INJ IV PRN (18:39)
[2018-12-28] MEDS: ONDANSETRON 4 MG INJ IV PRN (20:16)
[2018-12-28] MEDS ORDERED: ATORVASTATIN 80 MG TAB PO SCH (21:00)
[2018-12-28] MEDS: ATORVASTATIN 20 MG TAB PO SCH (21:27)
[2018-12-28] MEDS ORDERED: METOCLOPRAMIDE 10 MG INJ IV PRN (22:00)
[2018-12-29] VITALS (10 sets, daily range): BP systolic 92–120; BP diastolic 50–63; PULSE 51–72; RESP 18–20
[2018-12-29] MEDS: ONDANSETRON 4 MG INJ IV PRN (07:12)
[2018-12-29] MEDS: morphine 2 MG INJ IV PRN (07:13)
[2018-12-29] MEDS: ASPIRIN 81 MG TAB PO SCH (09:14)
[2018-12-29] MEDS: LISINOPRIL 5 MG TAB PO SCH (09:14)
--- NOTE | 2018-12-29 09:56 | PN ---
Date/Time of Note Date/Time of Note DATE: 12/29/18 TIME: 09:55 Assessment/Plan VTE Prophylaxis Risk score (from Ns)>0 risk: 3 SCD applied (from Ns): Yes Pharmacological prophylaxis: NA/contraindicated Pharm contraindication: low risk/ambulating Lines/Catheters IV Catheter Type (from [facility]): Peripheral IV Urinary Cath still in place: No Assessment/Plan Hospital Course SUBJECTIVE: She is ambulating in room. Complaining of left under breast area pain gets worse with deep inspiration. OBJECTIVE: Vital signs-see below PHYSICAL EXAM: Constitutional: Adequately built,not in acute distress. HEENT: Head atraumatic and normocephalic. Eyes: Extraocular muscles intact. Anicteric sclerae. Pupils equal bilaterally, reactive to light. NECK: Supple without lymph node. CHEST: Clear and good breath sounds equally. No wheezing. No rhonchi. HEART: S1, S2. Regular rate and rhythm. ABDOMEN: Soft/non tender with no rebound tenderness. Bowel sounds were present. EXTREMITIES: No cyanosis, clubbing or edema. NEUROLOGIC: Alert and oriented x3. No focal deficit. No sensory deficit. PSYCHOSOCIAL: No signs of depression. INTEGUMENTARY: No open wounds. ASSESSMENT AND PLAN:53 yo F w/no pmh admitted with chest pain/syncope after hearing sudden unexpected of her 16-year-old nephew.. found to have elevated troponin. NSTEMI 2/2 Takotsubo/stress cardiomyopathy -Status post [facility] 12/28/2018 -Continue aspirin/statin Syncope, likely vasovagal -Stable. Dyslipidemia -Continue statin Takotsubo cardiomyopathy with ejection fraction 40 to 45% -Continue medical management -medical management with beta-buzz/KIRSTIN inhibitors Prophylaxis: SCDs Disposition: Continue telemetry. Patient with no further symptoms, DC planning in 24 hours. patient was seen in collaboration with Result Diagram: 12/29/18 0611 12/29/18 0611 Results 24hrs Laboratory Tests Test 12/28/18 13:01 12/28/18 19:44 12/29/18 06:11 Creatine Kinase 103 Creatine Kinase Index 7.1 Creatinine Kinase MB (Mass) 7.28 H Troponin I 1.460 *H Activated Partial Thromboplast Time 27.3 White Blood Count 6.8 Red Blood Count 4.04 L Hemoglobin 12.2 Hematocrit 37.8 Mean Corpuscular Volume 93.6 Mean Corpuscular Hemoglobin 30.2 Mean Corpuscular Hemoglobin Concent 32.3 Red Cell Distribution Width 13.2 Platelet Count 167 Mean Platelet Volume 12.1 H Immature Granulocytes % 0.300 Neutrophils % 64.1 Lymphocytes % 27.4 Monocytes % 6.6 Eosinophils % 1.3 Basophils % 0.3 Nucleated Red Blood Cells % 0.0 Immature Granulocytes # 0.020 Neutrophils # 4.3 Lymphocytes # 1.9 Monocytes # 0.5 Eosinophils # 0.1 Basophils # 0.0 Nucleated Red Blood Cells # 0.0 Sodium Level 137 Potassium Level 4.2 Chloride Level 108 Carbon Dioxide Level 27 Anion Gap 2 L Blood Urea Nitrogen 8 Creatinine 0.58 Est Glomerular Filtrat Rate mL/min > 60 Glucose Level 109 Calcium Level 9.0 Total Bilirubin 0.8 Direct Bilirubin 0.00 Indirect Bilirubin 0.8 Aspartate Amino Transf (AST/SGOT) 43 Alanine Aminotransferase (ALT/SGPT) 53 Alkaline Phosphatase 68 Total Protein 6.3 Albumin 3.5 Globulin 2.80 Albumin/Globulin Ratio 1.25 Exam/Review of Systems Exam Vitals Vital Signs Date Temp Pulse Resp B/P (MAP) Pulse Ox O2 O2 Flow FiO2 Time Delivery Rate 12/29/18 67 08:35 12/29/18 98.3 18 108/60 96 Room Air 04:41 (76) Intake and Output 12/28/18 12/28/18 12/29/18 1515:00 23:00 07:00 IntakeIntake Total 600 ml 500 ml OutputOutput Total 400 ml BalanceBalance 600 ml 100 ml Results Results 24hrs Laboratory Tests Test 12/28/18 13:01 12/28/18 19:44 12/29/18 06:11 Creatine Kinase 103 Creatine Kinase Index 7.1 Creatinine Kinase MB (Mass) 7.28 H Troponin I 1.460 *H Activated Partial Thromboplast Time 27.3 White Blood Count 6.8 Red Blood Count 4.04 L Hemoglobin 12.2 Hematocrit 37.8 Mean Corpuscular Volume 93.6 Mean Corpuscular Hemoglobin 30.2 Mean Corpuscular Hemoglobin Concent 32.3 Red Cell Distribution Width 13.2 Platelet Count 167 Mean Platelet Volume 12.1 H Immature Granulocytes % 0.300 Neutrophils % 64.1 Lymphocytes % 27.4 Monocytes % 6.6 Eosinophils % 1.3 Basophils % 0.3 Nucleated Red Blood Cells % 0.0 Immature Granulocytes # 0.020 Neutrophils # 4.3 Lymphocytes # 1.9 Monocytes # 0.5 Eosinophils # 0.1 Basophils # 0.0 Nucleated Red Blood Cells # 0.0 Sodium Level 137 Potassium Level 4.2 Chloride Level 108 Carbon Dioxide Level 27 Anion Gap 2 L Blood Urea Nitrogen 8 Creatinine 0.58 Est Glomerular Filtrat Rate mL/min > 60 Glucose Level 109 Calcium Level 9.0 Total Bilirubin 0.8 Direct Bilirubin 0.00 Indirect Bilirubin 0.8 Aspartate Amino Transf (AST/SGOT) 43 Alanine Aminotransferase (ALT/SGPT) 53 Alkaline Phosphatase 68 Total Protein 6.3 Albumin 3.5 Globulin 2.80 Albumin/Globulin Ratio 1.25 Medications Medication Current Medications IV Flush (NS 3 ml) 3 ml PER PROTOCOL IV ; Start 12/28/18 at 01:30 Lorazepam (Ativan) 0.5 mg Q6H PRN IV .ANXIETY; Start 12/28/18 at 01:30 Ondansetron HCl (Zofran Inj) 4 mg Q6H PRN IV NAUSEA/VOMITING Last administered on 12/29/18at 07:12; Admin Dose 4 MG; Start 12/28/18 at 01:30 Aspirin (Aspirin) 81 mg DAILY PO Last administered on 12/29/18at 09:14; Admin Dose 81 MG; Start 12/28/18 at 09:00 Nitroglycerin (Nitroglycerin (Sl Tab) 0.4 Mg) 1 tab Q5M PRN SL .CHEST PAIN; Start 12/28/18 at 01:30 Acetaminophen (Tylenol Tab) 650 mg Q6H PRN PO .PAIN 1-3 OR TEMP Last administered on 12/28/18at 04:38; Admin Dose 650 MG; Start 12/28/18 at 01:30 Morphine Sulfate (morphine) 2 mg Q4H PRN IV .PAIN 7-10 Last administered on 12/29/18at 07:13; Admin Dose 2 MG; Start 12/28/18 at 01:30 Docusate Sodium (Colace) 100 mg Q12H PRN PO .CONSTIPATION; Start 12/28/18 at 01:30 Bisacodyl (Dulcolax) 5 mg DAILY PRN PO .CONSTIPATION; Start 12/28/18 at 01:30 Atorvastatin Calcium (Lipitor) 20 mg HS PO Last administered on 12/28/18 21:27; Admin Dose 20 MG; Start 12/28/18 at 21:00 Carvedilol (Coreg) 3.125 mg BID PO Last administered on 12/29/18 09:14; Admin Dose 3.125 MG; Start 12/28/18 at 21:00 Lisinopril (Zestril) 2.5 mg DAILY PO Last administered on 12/29/18 09:14; Admin Dose 2.5 MG; Start 12/29/18 at 09:00 Metoclopramide HCl (Reglan) 10 mg Q6H PRN IV NAUSEA Last administered on 12/28/18 22:09; Admin Dose 10 MG; Start 12/28/18 at 22:00 IRA REESE NP December 29, 2018 09:56
[2018-12-29] MEDS ORDERED: IBUPROFEN 400 MG TAB PO ONE (10:00)
[2018-12-29] MEDS ORDERED: IBUPROFEN 400 MG TAB PO PRN (10:00)
--- NOTE | 2018-12-29 20:10 | CONS ---
Assessment/Plan Assessment/Plan Hospital Course (Demo Recall) Assessment: NSTEMI - due to Takotsubo/stress cardiomyopathy Takotsubo cardiomyopathy - Variant with mid wall dyskinesis and normal apical motion. EF 35-40% by cath, 40-45% by echo. Should improve within 2-3 months Syncope - likely emotional stress triggering vasovagal response Dyslipidemia Recommendations: -continue medical management with carvedilol 3.125mg BID and lisinopril 2.5mg daily -continue atorvastatin at 20mg daily -discontinue aspirin Discharge planning. Stable for discharge from cardiac standpoint. Consultation Date/Type/Reason Admit Date/Time December 28, 2018 at 01:25 Initial Consult Date 12/28/18 Type of Consult Cardiology Date/Time of Note DATE: 12/29/18 TIME: 20:06 24 HR Interval Summary Free Text/Dictation Coronary angiography yesterday showed normal coronary arteries. Detailed Summary Additional Comments 14 point review of systems without changes. Exam/Review of Systems Vital Signs Vitals Vital Signs Date Temp Pulse Resp B/P (MAP) Pulse Ox O2 O2 Flow FiO2 Time Delivery Rate 12/29/18 51 16:28 12/29/18 98.4 18 92/53 (66) 98 Room Air 15:47 Intake and Output 12/28/18 12/28/18 12/29/18 1515:00 23:00 07:00 IntakeIntake Total 600 ml 500 ml OutputOutput Total 400 ml BalanceBalance 600 ml 100 ml Exam Exam Constitutional: alert, oriented Psych: no complaints, nl mood/affect Head: normocephalic, atraumatic Neck: supple; No jvd Respiratory: clear to auscultation; No crackles/rales Cardiovascular: regular rate and rhythm; No edema, No systolic murmur Gastrointestinal: soft, non-tender Neurological: nl mental status, nl speech Labs Result Diagram: 12/29/18 0611 12/29/18 0611 Results 24hrs Laboratory Tests Test 12/29/18 06:11 White Blood Count 6.8 Red Blood Count 4.04 L Hemoglobin 12.2 Hematocrit 37.8 Mean Corpuscular Volume 93.6 Mean Corpuscular Hemoglobin 30.2 Mean Corpuscular Hemoglobin Concent 32.3 Red Cell Distribution Width 13.2 Platelet Count 167 Mean Platelet Volume 12.1 H Immature Granulocytes % 0.300 Neutrophils % 64.1 Lymphocytes % 27.4 Monocytes % 6.6 Eosinophils % 1.3 Basophils % 0.3 Nucleated Red Blood Cells % 0.0 Immature Granulocytes # 0.020 Neutrophils # 4.3 Lymphocytes # 1.9 Monocytes # 0.5 Eosinophils # 0.1 Basophils # 0.0 Nucleated Red Blood Cells # 0.0 Sodium Level 137 Potassium Level 4.2 Chloride Level 108 Carbon Dioxide Level 27 Anion Gap 2 L Blood Urea Nitrogen 8 Creatinine 0.58 Est Glomerular Filtrat Rate mL/min > 60 Glucose Level 109 Calcium Level 9.0 Total Bilirubin 0.8 Direct Bilirubin 0.00 Indirect Bilirubin 0.8 Aspartate Amino Transf (AST/SGOT) 43 Alanine Aminotransferase (ALT/SGPT) 53 Alkaline Phosphatase 68 Total Protein 6.3 Albumin 3.5 Globulin 2.80 Albumin/Globulin Ratio 1.25 Medications Medications Current Medications IV Flush (NS 3 ml) 3 ml PER PROTOCOL IV ; Start 12/28/18 at 01:30 Lorazepam (Ativan) 0.5 mg Q6H PRN IV .ANXIETY; Start 12/28/18 at 01:30 Ondansetron HCl (Zofran Inj) 4 mg Q6H PRN IV NAUSEA/VOMITING Last administered on 12/29/18at 07:12; Admin Dose 4 MG; Start 12/28/18 at 01:30 Aspirin (Aspirin) 81 mg DAILY PO Last administered on 12/29/18at 09:14; Admin Dose 81 MG; Start 12/28/18 at 09:00 Nitroglycerin (Nitroglycerin (Sl Tab) 0.4 Mg) 1 tab Q5M PRN SL .CHEST PAIN; Start 12/28/18 at 01:30 Acetaminophen (Tylenol Tab) 650 mg Q6H PRN PO .PAIN 1-3 OR TEMP Last administered on 12/28/18at 04:38; Admin Dose 650 MG; Start 12/28/18 at 01:30 Morphine Sulfate (morphine) 2 mg Q4H PRN IV .PAIN 7-10 Last administered on 12/29/18at 07:13; Admin Dose 2 MG; Start 12/28/18 at 01:30 Docusate Sodium (Colace) 100 mg Q12H PRN PO .CONSTIPATION; Start 12/28/18 at 01:30 Bisacodyl (Dulcolax) 5 mg DAILY PRN PO .CONSTIPATION; Start 12/28/18 at 01:30 Atorvastatin Calcium (Lipitor) 20 mg HS PO Last administered on 12/28/18 21:27; Admin Dose 20 MG; Start 12/28/18 at 21:00 Carvedilol (Coreg) 3.125 mg BID PO Last administered on 12/29/18 09:14; Admin Dose 3.125 MG; Start 12/28/18 at 21:00 Lisinopril (Zestril) 2.5 mg DAILY PO Last administered on 12/29/18 09:14; Admin Dose 2.5 MG; Start 12/29/18 at 09:00 Metoclopramide HCl (Reglan) 10 mg Q6H PRN IV NAUSEA Last administered on 12/28/18 22:09; Admin Dose 10 MG; Start 12/28/18 at 22:00 TRIPP VALENTINO MD December 29, 2018 20:10
[2018-12-29] MEDS: ATORVASTATIN 20 MG TAB PO SCH (20:46)
[2018-12-30] VITALS (10 sets, daily range): BP systolic 86–118; BP diastolic 42–63; PULSE 43–80; RESP 18
[2018-12-30] MEDS: ACETAMINOPHEN 325 MG TAB PO PRN (00:18)
[2018-12-30] MEDS: LISINOPRIL 5 MG TAB PO SCH (09:58)
--- NOTE | 2018-12-30 11:05 | CONS ---
Assessment/Plan Assessment/Plan Hospital Course (Demo Recall) Assessment: NSTEMI - due to Takotsubo/stress cardiomyopathy Takotsubo cardiomyopathy - Variant with mid wall dyskinesis and normal apical motion. EF 35-40% by cath, 40-45% by echo. Should improve within 2-3 months Syncope - likely emotional stress triggering vasovagal response Dyslipidemia Recommendations: -discontinue carvedilol due to bradycardia -continue lisinopril 2.5mg daily -continue atorvastatin at 20mg daily Discharge planning. Stable for discharge from cardiac standpoint. Consultation Date/Type/Reason Admit Date/Time December 28, 2018 at 01:25 Initial Consult Date 12/28/18 Type of Consult Cardiology Date/Time of Note DATE: 12/30/18 TIME: 11:04 24 HR Interval Summary Free Text/Dictation Bradycardia requiring carvedilol to be held. Otherwise, no acute events. Detailed Summary Additional Comments 14 point review of systems without changes. Exam/Review of Systems Vital Signs Vitals Vital Signs Date Temp Pulse Resp B/P (MAP) Pulse Ox O2 O2 Flow FiO2 Time Delivery Rate 12/30/18 48 08:00 12/30/18 98.6 18 102/52 98 Room Air 07:26 (69) Intake and Output 12/29/18 12/29/18 12/30/18 1515:00 23:00 07:00 IntakeIntake Total 900 ml 500 ml BalanceBalance 900 ml 500 ml Exam Exam Constitutional: alert, oriented Psych: no complaints, nl mood/affect Head: normocephalic, atraumatic Neck: supple; No jvd Respiratory: clear to auscultation; No crackles/rales Cardiovascular: regular rate and rhythm; No edema, No systolic murmur Gastrointestinal: soft, non-tender Neurological: nl mental status, nl speech Labs Result Diagram: 12/30/18 0630 12/30/18 0630 Results 24hrs Laboratory Tests Test 12/30/18 06:30 White Blood Count 6.0 Red Blood Count 4.08 L Hemoglobin 12.5 Hematocrit 38.6 Mean Corpuscular Volume 94.6 Mean Corpuscular Hemoglobin 30.6 Mean Corpuscular Hemoglobin Concent 32.4 Red Cell Distribution Width 13.2 Platelet Count 155 Mean Platelet Volume 12.2 H Immature Granulocytes % 0.200 Neutrophils % 61.6 Lymphocytes % 26.8 Monocytes % 8.9 Eosinophils % 2.2 Basophils % 0.3 Nucleated Red Blood Cells % 0.0 Immature Granulocytes # 0.010 Neutrophils # 3.7 Lymphocytes # 1.6 Monocytes # 0.5 Eosinophils # 0.1 Basophils # 0.0 Nucleated Red Blood Cells # 0.0 Sodium Level 142 Potassium Level 4.4 Chloride Level 107 Carbon Dioxide Level 28 Anion Gap 7 Blood Urea Nitrogen 14 Creatinine 0.61 Est Glomerular Filtrat Rate mL/min > 60 Glucose Level 119 Calcium Level 9.1 Total Bilirubin 0.6 Direct Bilirubin 0.00 Indirect Bilirubin 0.6 Aspartate Amino Transf (AST/SGOT) 32 Alanine Aminotransferase (ALT/SGPT) 39 Alkaline Phosphatase 79 Total Protein 7.0 Albumin 3.8 Globulin 3.20 Albumin/Globulin Ratio 1.18 Medications Medications Current Medications IV Flush (NS 3 ml) 3 ml PER PROTOCOL IV ; Start 12/28/18 at 01:30 Lorazepam (Ativan) 0.5 mg Q6H PRN IV .ANXIETY; Start 12/28/18 at 01:30 Ondansetron HCl (Zofran Inj) 4 mg Q6H PRN IV NAUSEA/VOMITING Last administered on 12/29/18at 07:12; Admin Dose 4 MG; Start 12/28/18 at 01:30 Nitroglycerin (Nitroglycerin (Sl Tab) 0.4 Mg) 1 tab Q5M PRN SL .CHEST PAIN; Start 12/28/18 at 01:30 Acetaminophen (Tylenol Tab) 650 mg Q6H PRN PO .PAIN 1-3 OR TEMP Last administered on 12/30/18at 00:18; Admin Dose 650 MG; Start 12/28/18 at 01:30 Morphine Sulfate (morphine) 2 mg Q4H PRN IV .PAIN 7-10 Last administered on 12/29/18at 07:13; Admin Dose 2 MG; Start 12/28/18 at 01:30 Docusate Sodium (Colace) 100 mg Q12H PRN PO .CONSTIPATION; Start 12/28/18 at 01:30 Bisacodyl (Dulcolax) 5 mg DAILY PRN PO .CONSTIPATION; Start 12/28/18 at 01:30 Atorvastatin Calcium (Lipitor) 20 mg HS PO Last administered on 12/29/18at 20:46; Admin Dose 20 MG; Start 12/28/18 at 21:00 Carvedilol (Coreg) 3.125 mg BID PO Last administered on 12/29/18 20:46; Admin Dose 3.125 MG; Start 12/28/18 at 21:00 Lisinopril (Zestril) 2.5 mg DAILY PO Last administered on 12/30/18 09:58; Admin Dose 2.5 MG; Start 12/29/18 at 09:00 Metoclopramide HCl (Reglan) 10 mg Q6H PRN IV NAUSEA Last administered on 12/28/18 22:09; Admin Dose 10 MG; Start 12/28/18 at 22:00 TRIPP VALENTINO MD December 30, 2018 11:05
--- NOTE | 2018-12-30 13:11 | PDOCDIS ---
Discharge Instructions CONDITION [id number] Patient Condition: [id number] Stable HOME CARE INSTRUCTIONS: [id number] Diet Instructions: [id number] Low Fat /Cholesterol FOLLOW UP/APPOINTMENTS Follow-up Plan Follow-up with primary care physician in 1 week IRA REESE NP December 30, 2018 13:11
[2018-12-30] MEDS ORDERED: LISI-313 PO (13:12)
[2018-12-30] MEDS ORDERED: ATOR20TA65 PO (13:12)
--- NOTE | 2018-12-30 13:22 | DS ---
Date/Time of Note Date/Time of Note DATE: 12/30/18 TIME: 13:17 Discharge Summary Admission/Discharge Info Admit Date/Time December 28, 2018 at 01:25 Discharge Date/Time Discharge Diagnosis NSTEMI 2/2 Takotsubo/stress cardiomyopathy -Status post [facility] 12/28/2018 s/p Syncope, likely vasovagal Dyslipidemia Takotsubo cardiomyopathy with ejection fraction 40 to 45% Patient Condition: Stable Consults samuel boone Procedures Procedure Description Procedure Date:12/28/18 Corporate Lawyer/surgeon:Kun Agudelo MD. Procedures Performed: 1)Left heart catheterization with selective left and right coronary angiography. 2)Left ventricle angiography 12/28/2018: 2D echocardiogram: Conclusions: Normal left ventricular cavity size. Normal left ventricular wall thickness. Mild left ventricular systolic dysfunction. Ejection fraction is visually estimated at 40-45 %. Akinesis/dyskinesis of the mid anterior and anterolateral reyes. These segments of the LV are hypokinetic mid anterior segment, anterolateral mid segment and anteroseptum mid segment. No significant valvular stenosis or regurgitation seen. Estimated peak PA systolic pressure 30 mmHg. Normal size and normal respiratory collapse consistent with normal right atrial pressure. Electronically Signed By: Kun Agudelo 2018-12-28 08:52:26 PDT Hospital Course 53 yo F w/no pmh admitted with chest pain/syncope after hearing sudden unexpected of her 16-year-old nephew.. found to have elevated troponin. She had [facility] 12/28/2018 normal anatomy/hemodynamics of coronary arteries. Findings mostly suggestive of Takotsubo/stress cardiomyopathy with ejection fraction 40 to 45%. She was continued on medical management with beta-blockers and KIRSTIN inhibitors. However, patient was unable to tolerate Coreg secondary to bradycardia. Most likely, syncope episode was vasovagal. At this time, Coreg was stopped and patient was managed on KIRSTIN inhibitors. She remained medically stable. Patient was also started on statin for dyslipidemia. There was no further episodes of syncope or dizziness. Patient was cleared from cardiology standpoint for outpatient follow-up. Patient was cleared from physical therapy and does not require any DME's. Approximately 60 m spent on coordinating the discharge on this patient. Patient was seen in collaboration with Dr. Davila. Home Meds Active Scripts Lisinopril* (Lisinopril*) 5 Mg Tablet, 2.5 MG PO DAILY, #30 TAB Prov:IRA REESE V. PL SQL PROGRAMMER 12/30/18 Atorvastatin Calcium (Atorvastatin Calcium) 20 Mg Tablet, 20 MG PO HS, #30 TAB Prov:IRA REESE V. PL SQL PROGRAMMER 12/30/18 Ibuprofen* (Motrin*) 600 Mg Tab, 600 MG PO Q6H PRN for PAIN AND OR ELEVATED TEMP, #30 TAB Prov:JUAN GOMEZ NP 02/01/18 Discontinued Scripts Cetirizine Hcl* (Zyrtec*) 10 Mg Capsule, 10 MG PO DAILY, #30 TAB.CHEW Prov:JUAN GOMEZ NP 02/01/18 Guaifenesin-Codeine Phosphate* (Guaifenesin* AC Cough Syrup) 473 Ml Liquid, 10 ML PO Q4H PRN for COUGH, #120 ML Prov:JUAN GOMEZ NP 02/01/18 Azithromycin* (Zithromax*) 250 Mg Tablet, 250 MG PO .RADHA DIRECTED, #6 TAB TAKE 500 MG (2 TABS) THE FIRST DAY THEN 250 MG (1 TAB) DAYS 2-5 Prov:JUAN GOMEZ NP 02/01/18 Albuterol Sulfate* (Proair HFA*) 8.5 Gm Hfa.aer.ad, 2 PUFF INH Q4, #1 INHALER Prov:JUAN GOMEZ NP 02/01/18 Famotidine* (Famotidine*) 20 Mg Tablet, 20 MG PO BID for 7 Days, #14 TAB Prov:SRAVANI BARBOZA MD 03/01/17 Dicyclomine HCl (Dicyclomine HCl) 10 Mg Capsule, 10 MG PO QID PRN for PAIN, #20 CAP Prov:SRAVANI BARBOZA MD 03/01/17 Follow-up Plan Follow-up with primary care physician in 1 week Primary Care Provider Care Physician No Primary Pending Labs Laboratory Tests Test 12/30/18 06:30 White Blood Count 6.0 10^3/ul (4.8-10.8) Red Blood Count 4.08 10^6/ul (4.20-5.40) Hemoglobin 12.5 g/dl (12.0-16.0) Hematocrit 38.6 % (37.0-47.0) Mean Corpuscular Volume 94.6 fl (82.0-101.0) Mean Corpuscular Hemoglobin 30.6 pg (29.0-33.0) Mean Corpuscular Hemoglobin Concent 32.4 g/dl (32.0-37.0) Red Cell Distribution Width 13.2 % (11.5-14.5) Platelet Count 155 10^3/UL (140-415) Mean Platelet Volume 12.2 fl (7.4-10.4) Immature Granulocytes % 0.200 % (0.001-0.429) Neutrophils % 61.6 % (39.0-77.0) Lymphocytes % 26.8 % (15.0-51.0) Monocytes % 8.9 % (0.0-11.0) Eosinophils % 2.2 % (0.0-7.0) Basophils % 0.3 % (0.0-2.0) Nucleated Red Blood Cells % 0.0 /100WBC (0.0-0.0) Immature Granulocytes # 0.010 10^3/ul (0.0-0.031) Neutrophils # 3.7 10^3/ul (1.6-7.5) Lymphocytes # 1.6 10^3/ul (0.8-2.9) Monocytes # 0.5 10^3/ul (0.3-0.9) Eosinophils # 0.1 10^3/ul (0.0-0.5) Basophils # 0.0 10^3/ul (0.0-0.1) Nucleated Red Blood Cells # 0.0 10^3/ul (0.0-0.0) Sodium Level 142 mmol/L (135-144) Potassium Level 4.4 mmol/L (3.5-5.1) Chloride Level 107 mmol/L (97-110) Carbon Dioxide Level 28 mmol/L (21-31) Anion Gap 7 (5-13) Blood Urea Nitrogen 14 mg/dl (7-20) Creatinine 0.61 mg/dl (0.44-1.00) Est Glomerular Filtrat Rate mL/min > 60 mL/min (>60) Glucose Level 119 mg/dl (70-220) Calcium Level 9.1 mg/dl (8.4-10.2) Total Bilirubin 0.6 mg/dl (0.2-1.3) Direct Bilirubin 0.00 mg/dl (0.00-0.20) Indirect Bilirubin 0.6 mg/dl (0-1.1) Aspartate Amino Transf (AST/SGOT) 32 IU/L (15-46) Alanine Aminotransferase (ALT/SGPT) 39 IU/L (13-69) Alkaline Phosphatase 79 IU/L (42-121) Total Protein 7.0 g/dl (6.1-8.1) Albumin 3.8 g/dl (3.3-4.9) Globulin 3.20 g/dl (1.3-3.2) Albumin/Globulin Ratio 1.[address] SQL PROGRAMMER December 30, 2018 13:22
== END 2018-12-30 16:19 | disposition home or self-care (01) | DRG 281 ==
LOC: E/R 22:09 → TEL 12-28 01:25
PROVIDERS: ADMIT Family Medicine; ATTEND Family Medicine
PROC: B211YZZ Fluoroscopy of Multiple Coronary Arteries using Other Contrast (ICD-10-PCS; 2018-12-28)
PROC: B215YZZ Fluoroscopy of Left Heart using Other Contrast (ICD-10-PCS; 2018-12-28)
PROC: 4A023N7 Measurement of Cardiac Sampling and Pressure, Left Heart, Percutaneous Approach (ICD-10-PCS; principal; 2018-12-28 14:00)
DX: I21.4 Non-ST elevation (NSTEMI) myocardial infarction (principal); I51.81 Takotsubo syndrome; R55 Syncope and collapse; E78.5 Hyperlipidemia, unspecified; I10 Essential (primary) hypertension; F43.21 Adjustment disorder with depressed mood
CPT/HCPCS: 71045; 80048; 80053; 80061; 82306; 82550; 82553; 82962; 83036; 83690; 83735; 83880; 84443; 84484; 85025; 85610; 85730; 93005; 93306; 93458; 96374; 96375; 96376; C1894; J1644; J2060; J2250; J2270; J2405; J2765; J3010; J7030; Q9967